=== PATIENT | male | born 1940 | race African-American/Black ===

== ENCOUNTER → 2016-12-19 | Outpatient (CLI) | payer MEDICARE, OTHER ==
[2016-12-19 09:40] LABS: ALANINE AMINOTRANSFERASE 47 U/L (21-72); ALKALINE PHOSPHATASE 83 U/L (38-126); ASPARTATE AMINO TRANSFERASE 39 U/L (17-59); BILIRUBIN,DIRECT 0.3 mg/dL (0.0-0.4); CHOLESTEROL 133.37 mg/dL (0-200); Direct HDL 47 mg/dL (>40); TOTAL PROTEIN 6.7 g/dL (6.3-8.2); TRIGLYCERIDES 76 mg/dL (<150)
[2016-12-19 09:52] LABS: DIRECT LDL 58 mg/dL (<100)
[2016-12-20 10:38] LABS: CREATININE URINE 189.2 mg/dL (Not Estab.); MICROALBUMIN URINE 14.2 ug/mL (Not Estab.)
== END ==
LOC: OD 08:10
PROVIDERS: ATTEND Internal Medicine Cardiovascular Disease
DX: E11.9 Type 2 diabetes mellitus without complications (principal); E78.5 Hyperlipidemia, unspecified; Z79.899 Other long term (current) drug therapy
CPT/HCPCS: 36415; 80061; 80076; 82043; 82570; 83036

== ENCOUNTER → 2017-05-16 | Outpatient (CLI) | payer MEDICARE, OTHER ==
[2017-05-16 09:00] LABS: ALANINE AMINOTRANSFERASE 35 U/L (21-72); ALKALINE PHOSPHATASE 88 U/L (38-126); ASPARTATE AMINO TRANSFERASE 24 U/L (17-59); BILIRUBIN,DIRECT 0.4 mg/dL (0.0-0.4); CHOLESTEROL 131.91 mg/dL (0-200); Direct HDL 54 mg/dL (>40); TOTAL PROTEIN 6.6 g/dL (6.3-8.2); TRIGLYCERIDES 60 mg/dL (<150)
[2017-05-16 09:11] LABS: DIRECT LDL 64 mg/dL (<100)
[2017-05-17 14:38] LABS: CREATININE URINE 173.8 mg/dL (Not Estab.)
== END ==
LOC: OD 07:34
PROVIDERS: ATTEND Internal Medicine Cardiovascular Disease
DX: E78.5 Hyperlipidemia, unspecified (principal); E11.9 Type 2 diabetes mellitus without complications; Z79.899 Other long term (current) drug therapy
CPT/HCPCS: 36415; 80061; 80076; 82043; 82570; 83036

== ENCOUNTER → 2017-12-30 | Outpatient (CLI) | payer MEDICARE, OTHER ==
[2017-12-31 09:49] LABS: ALANINE AMINOTRANSFERASE 32 U/L (21-72); ALBUMIN 3.8 g/dL (3.5-5.0); ALKALINE PHOSPHATASE 78 U/L (38-126); ANION GAP 11 (5-19); ASPARTATE AMINO TRANSFERASE 27 U/L (17-59); BILIRUBIN,DIRECT 0.3 mg/dL (0.0-0.4); BILIRUBIN,TOTAL 0.8 mg/dL (0.2-1.3); BLOOD UREA NITROGEN 22 mg/dL (7-20); CALCIUM 9.3 mg/dL (8.4-10.2); CARBON DIOXIDE 25 mmol/L (22-30); CHLORIDE 110 mmol/L (98-107); CHOLESTEROL 106.17 mg/dL (0-200); GLUCOSE 117 mg/dL (75-110); POTASSIUM 4.6 mmol/L (3.6-5.0); SODIUM 145.6 mmol/L (137-145); TOTAL PROTEIN 6.4 g/dL (6.3-8.2); TRIGLYCERIDES 68 mg/dL (<150)
[2017-12-31 10:00] LABS: DIRECT LDL 46 mg/dL (<100)
== END ==
LOC: OD 08:35
PROVIDERS: ATTEND Internal Medicine Cardiovascular Disease
DX: Z79.899 Other long term (current) drug therapy (principal); E78.5 Hyperlipidemia, unspecified; R00.2 Palpitations; E11.9 Type 2 diabetes mellitus without complications
CPT/HCPCS: 36415; 80048; 80061; 80076; 83036

== ENCOUNTER → 2018-04-10 | Outpatient (CLI) | payer MEDICARE, OTHER ==
[2018-04-10 11:23] LABS: HEMATOCRIT 38.3 % (37.9-51.0); HEMOGLOBIN 12.9 g/dL (13.5-17.0); MEAN CORPUSCULAR HEMOGLOBIN 30.6 pg (27.0-33.4); MEAN CORPUSCULAR HGB CONC 33.6 g/dL (32.0-36.0); MEAN CORPUSCULAR VOLUME 91 fl (80-97); PLATELET COUNT 173 10^3/uL (150-450); RED BLOOD COUNT 4.21 10^6/uL (4.35-5.55); RED CELL DISTRIBUTION WIDTH 13.5 % (11.5-14.0); WHITE BLOOD COUNT 3.3 10^3/uL (4.0-10.5)
[2018-04-10 11:34] LABS: PROTHROMBIN TIME 13.7 SEC (11.4-15.4)
[2018-04-10 11:35] LABS: PARTIAL THROMBOPLASTIN TIME 36.1 SEC (23.5-35.8)
[2018-04-10 11:43] LABS: ANION GAP 9 (5-19); BLOOD UREA NITROGEN 24 mg/dL (7-20); CALCIUM 9.6 mg/dL (8.4-10.2); CARBON DIOXIDE 25 mmol/L (22-30); CHLORIDE 109 mmol/L (98-107); GLUCOSE 151 mg/dL (75-110); POTASSIUM 5.3 mmol/L (3.6-5.0); SODIUM 142.6 mmol/L (137-145)
== END ==
LOC: OD 10:39
PROVIDERS: ATTEND Internal Medicine Cardiovascular Disease
DX: Z01.810 Encounter for preprocedural cardiovascular examination (principal); R07.89 Other chest pain; Z79.01 Long term (current) use of anticoagulants
CPT/HCPCS: 36415; 80048; 85027; 85610; 85730

== ENCOUNTER → 2018-12-23 | Outpatient (CLI) | payer MEDICARE, OTHER ==
[2018-12-23 10:00] LABS: ALANINE AMINOTRANSFERASE 37 U/L (21-72); ALBUMIN 3.8 g/dL (3.5-5.0); ALKALINE PHOSPHATASE 80 U/L (38-126); ANION GAP 8 (5-19); ASPARTATE AMINO TRANSFERASE 31 U/L (17-59); BILIRUBIN,DIRECT 0.2 mg/dL (0.0-0.4); BLOOD UREA NITROGEN 15 mg/dL (7-20); CALCIUM 9.5 mg/dL (8.4-10.2); CARBON DIOXIDE 24 mmol/L (22-30); CHLORIDE 111 mmol/L (98-107); CHOLESTEROL 112.98 mg/dL (0-200); GLUCOSE 138 mg/dL (75-110); POTASSIUM 4.8 mmol/L (3.6-5.0); SODIUM 142.5 mmol/L (137-145); TOTAL PROTEIN 6.4 g/dL (6.3-8.2); TRIGLYCERIDES 60 mg/dL (<150)
[2018-12-23 10:11] LABS: DIRECT LDL 51 mg/dL (<100)
== END ==
LOC: LAB 08:50
PROVIDERS: ATTEND Internal Medicine Cardiovascular Disease
DX: E78.5 Hyperlipidemia, unspecified (principal); I10 Essential (primary) hypertension; Z79.899 Other long term (current) drug therapy
CPT/HCPCS: 36415; 80048; 80061; 80076

== ENCOUNTER → 2019-05-17 | Outpatient (CLI) | payer MEDICARE, OTHER ==
[2019-05-17 09:37] LABS: ALBUMIN 3.9 g/dL (3.5-5.0); ALKALINE PHOSPHATASE 82 U/L (38-126); ANION GAP 9 (5-19); ASPARTATE AMINO TRANSFERASE 30 U/L (17-59); BILIRUBIN,DIRECT 0.1 mg/dL (0.0-0.4); BILIRUBIN,TOTAL 0.9 mg/dL (0.2-1.3); BLOOD UREA NITROGEN 19 mg/dL (7-20); CALCIUM 9.3 mg/dL (8.4-10.2); CARBON DIOXIDE 26 mmol/L (22-30); CHLORIDE 106 mmol/L (98-107); CHOLESTEROL 117.22 mg/dL (0-200); GLUCOSE 140 mg/dL (75-110); POTASSIUM 4.9 mmol/L (3.6-5.0); TOTAL PROTEIN 6.8 g/dL (6.3-8.2); TRIGLYCERIDES 50 mg/dL (<150)
[2019-05-17 09:49] LABS: DIRECT LDL 48 mg/dL (<100)
== END ==
LOC: LAB 08:53
PROVIDERS: ATTEND Internal Medicine Cardiovascular Disease
DX: E78.5 Hyperlipidemia, unspecified (principal); I10 Essential (primary) hypertension; Z79.899 Other long term (current) drug therapy
CPT/HCPCS: 36415; 80048; 80061; 80076

== ENCOUNTER → 2019-08-18 | Outpatient (CLI) | payer MEDICARE, OTHER ==
[2019-08-18 11:06] LABS: ALBUMIN 4.1 g/dL (3.5-5.0); ALKALINE PHOSPHATASE 90 U/L (38-126); ANION GAP 6 (5-19); ASPARTATE AMINO TRANSFERASE 31 U/L (17-59); BILIRUBIN,TOTAL 1.1 mg/dL (0.2-1.3); BLOOD UREA NITROGEN 19 mg/dL (7-20); CALCIUM 9.5 mg/dL (8.4-10.2); CARBON DIOXIDE 29 mmol/L (22-30); CHLORIDE 106 mmol/L (98-107); CHOLESTEROL 130.15 mg/dL (0-200); GLUCOSE 174 mg/dL (75-110); POTASSIUM 5.2 mmol/L (3.6-5.0); TOTAL PROTEIN 6.8 g/dL (6.3-8.2); TRIGLYCERIDES 70 mg/dL (<150)
[2019-08-18 11:17] LABS: DIRECT LDL 65 mg/dL (<100)
[2019-08-19 12:37] LABS: CREATININE URINE 153.4 mg/dL (Not Estab.); MICROALBUMIN URINE 30.1 ug/mL (Not Estab.)
== END ==
LOC: LAB 09:57
PROVIDERS: ATTEND Physician Assistant
DX: E11.9 Type 2 diabetes mellitus without complications (principal); E78.5 Hyperlipidemia, unspecified; I10 Essential (primary) hypertension; Z79.899 Other long term (current) drug therapy
CPT/HCPCS: 36415; 80048; 80061; 80076; 82043; 82570; 83036

== ENCOUNTER → 2019-09-07 | Outpatient (CLI) | payer MEDICARE, OTHER ==
[2019-09-07 11:04] LABS: ANION GAP 13 (5-19); BLOOD UREA NITROGEN 20 mg/dL (7-20); CALCIUM 9.3 mg/dL (8.4-10.2); CARBON DIOXIDE 24 mmol/L (22-30); CHLORIDE 105 mmol/L (98-107); GLUCOSE 192 mg/dL (75-110); POTASSIUM 4.9 mmol/L (3.6-5.0)
== END ==
LOC: LAB 10:12
PROVIDERS: ATTEND Physician Assistant
DX: E87.5 Hyperkalemia (principal); I10 Essential (primary) hypertension; Z12.5 Encounter for screening for malignant neoplasm of prostate
CPT/HCPCS: 36415; 80048; G0103

== ENCOUNTER → 2019-12-16 | Outpatient (CLI) | payer MEDICARE, OTHER ==
[2019-12-16 09:53] LABS: ALBUMIN 4.2 g/dL (3.5-5.0); ALKALINE PHOSPHATASE 87 U/L (38-126); ANION GAP 7 (5-19); ASPARTATE AMINO TRANSFERASE 26 U/L (17-59); BLOOD UREA NITROGEN 22 mg/dL (7-20); CALCIUM 9.4 mg/dL (8.4-10.2); CARBON DIOXIDE 27 mmol/L (22-30); CHLORIDE 107 mmol/L (98-107); CHOLESTEROL 120.95 mg/dL (0-200); GLUCOSE 166 mg/dL (75-110); TOTAL PROTEIN 7.1 g/dL (6.3-8.2); TRIGLYCERIDES 70 mg/dL (<150)
[2019-12-16 10:04] LABS: DIRECT LDL 57 mg/dL (<100)
== END ==
LOC: OD 08:16
PROVIDERS: ATTEND Physician Assistant
DX: E78.5 Hyperlipidemia, unspecified (principal); I10 Essential (primary) hypertension; E87.5 Hyperkalemia; E11.9 Type 2 diabetes mellitus without complications; Z79.899 Other long term (current) drug therapy
CPT/HCPCS: 36415; 80048; 80061; 80076; 83036

== ENCOUNTER → 2020-06-13 | Outpatient (CLI) | payer MEDICARE, OTHER ==
[2020-06-13 14:46] LABS: ALBUMIN 4.1 g/dL (3.5-5.0); ALKALINE PHOSPHATASE 81 U/L (38-126); ANION GAP 6 (5-19); ASPARTATE AMINO TRANSFERASE 26 U/L (17-59); BILIRUBIN,DIRECT 0.2 mg/dL (0.0-0.4); BILIRUBIN,TOTAL 1.1 mg/dL (0.2-1.3); BLOOD UREA NITROGEN 16 mg/dL (7-20); CALCIUM 9.3 mg/dL (8.4-10.2); CARBON DIOXIDE 26 mmol/L (22-30); CHLORIDE 109 mmol/L (98-107); CHOLESTEROL 113.22 mg/dL (0-200); GLUCOSE 115 mg/dL (75-110); POTASSIUM 4.7 mmol/L (3.6-5.0); TOTAL PROTEIN 6.9 g/dL (6.3-8.2); TRIGLYCERIDES 94 mg/dL (<150)
[2020-06-13 14:58] LABS: DIRECT LDL 49 mg/dL (<100)
== END ==
LOC: OD 13:06
PROVIDERS: ATTEND Physician Assistant
DX: E11.9 Type 2 diabetes mellitus without complications (principal); E78.5 Hyperlipidemia, unspecified; I10 Essential (primary) hypertension; E87.5 Hyperkalemia; Z79.899 Other long term (current) drug therapy
CPT/HCPCS: 36415; 80048; 80061; 80076; 83036